=== PATIENT | male | born 1955 | race Hispanic/Latino ===

== ENCOUNTER 2018-02-11 05:56 | Day surgery (SDC) | payer OTHER, MEDICARE ==
[~2018-02-11 05:56] MED LIST: ASPI-1012 PO; CHOL100040 PO; DUTA0.5C17 PO; EZET10 PO; FENO160T16 PO; GABA-531 PO; GLIP1TAB6 PO; LOSA25TA21 PO; METO25TA6 PO; NITR0.3T SL; NYST15CR TP; PIOG45TA64 PO; SERT100T12 PO; SIMV40TA5 PO; TAMS0.4C32 PO
== END 2018-02-11 06:30 | disposition home or self-care (01) ==
LOC: DAH 05:56 → ENDO 05:56
PROVIDERS: ATTEND Internal Medicine Gastroenterology
DX: Z12.11 Encounter for screening for malignant neoplasm of colon (principal); Z53.9 Procedure and treatment not carried out, unspecified reason; Z68.44 Body mass index [BMI] 60.0-69.9, adult; K21.9 Gastro-esophageal reflux disease without esophagitis; I10 Essential (primary) hypertension; E78.5 Hyperlipidemia, unspecified; I25.10 Atherosclerotic heart disease of native coronary artery without angina pectoris; G47.33 Obstructive sleep apnea (adult) (pediatric); N40.0 Benign prostatic hyperplasia without lower urinary tract symptoms; E11.9 Type 2 diabetes mellitus without complications; M19.90 Unspecified osteoarthritis, unspecified site; F32.9 Major depressive disorder, single episode, unspecified; Z98.890 Other specified postprocedural states; Z79.84 Long term (current) use of oral hypoglycemic drugs; Z79.899 Other long term (current) drug therapy
CPT/HCPCS: 82948

== ENCOUNTER → 2019-07-10 | Outpatient (CLI) | payer OTHER, MEDICARE ==
[~2019-07-10] MED LIST changes: -EZET10 PO; +EZET10TA13 PO; -LOSA25TA21 PO; +LOSA25TA41 PO
== END | disposition home or self-care (01) ==
LOC: RAH 09:54
PROVIDERS: ATTEND Internal Medicine
DX: I50.30 Unspecified diastolic (congestive) heart failure (principal); I51.7 Cardiomegaly
CPT/HCPCS: 93306

== ENCOUNTER → 2022-03-23 | Outpatient (CLI) | payer MEDICARE, OTHER ==
[~2022-03-23] MED LIST changes: -DUTA0.5C17 PO; +DUTA0.5C37 PO; +SERT-440 PO; -SERT100T12 PO; +SIMV-46 PO; -SIMV40TA5 PO
== END | disposition home or self-care (01) ==
LOC: RAH 14:51
PROVIDERS: ATTEND Internal Medicine
DX: R07.81 Pleurodynia (principal); R07.89 Other chest pain
CPT/HCPCS: 71100